=== PATIENT | male | born 1985 | race Caucasian/White ===

== ENCOUNTER 2019-08-19 17:53 | Emergency (ER) | payer MEDICAID ==
[~2019-08-19] VITALS: Ht 170.2 cm; Wt 68.0 kg
--- NOTE | 2019-08-19 17:53 | NUR ---
Patient to ER bed 6 to gown for evaluation. Side rails up. Report given to SONIA Olmos.
--- NOTE | 2019-08-19 17:55 | NUR ---
ER Dr Garza at bedside examining patient.
[2019-08-19 17:57] VITALS: BP_SYST 126
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
[2019-08-19] MEDS ORDERED: LORazepam 1 MG TABLET PO ONE (18:15)
[2019-08-19] MEDS ORDERED: KETOROLAC TROMETHAMINE 60 MG/2 ML VIAL IM ONE (18:15)
--- NOTE | 2019-08-19 18:20 | NUR ---
pt getting an US at the bedside.
[2019-08-19 18:35] LABS: BASOPHILS # (AUTO) 0.1 K/uL (0.0-0.2); BASOPHILS % (AUTO) 0.7 % (0.0-2.0); EOSINOPHILS # (AUTO) 0.1 K/uL (0.0-0.4); EOSINOPHILS % (AUTO) 0.7 % (0.0-4.0); HEMATOCRIT 40.8 % (36-54); HEMOGLOBIN 13.7 g/dL (14.0-18.0); LYMPHOCYTES # (AUTO) 1.5 K/uL (1.0-5.5); LYMPHOCYTES % (AUTO) 17.9 % (20.5-51.5); MEAN CORPUSCULAR HEMOGLOBIN 29 pg (27-31); MEAN CORPUSCULAR HGB CONC 34 % (32-36); MEAN CORPUSCULAR VOLUME 85 fL (79.0-98.0); MONOCYTES # (AUTO) 0.3 K/uL (0.0-1.0); MONOCYTES % (AUTO) 4.1 % (1.7-9.3); NEUTROPHILS # (AUTO) 6.3 K/uL (1.8-7.7); NEUTROPHILS % (AUTO) 76.6 % (40.0-70.0); PLATELET COUNT (AUTO) 152 K/uL (130-430); RED BLOOD CELL COUNT(AUTO) 4.79 MIL/uL (4.2-6.2); RED CELL DISTRIBUTION WIDTH 13.4 % (9.0-15.0); WHITE BLOOD COUNT (AUTO) 8.3 K/uL (4.8-10.8)
[2019-08-19 18:48] LABS: CREATININE 0.99 mg/dL (0.55-1.30)
[2019-08-19 18:52] LABS: ALBUMIN 4.2 g/dL (3.4-4.8); TOTAL BILIRUBIN 0.9 mg/dL (0.0-1.0)
--- NOTE | 2019-08-19 19:00 | NUR ---
pt is still having an US at the bedside.
--- NOTE | 2019-08-19 19:10 | NUR ---
Care endorsed to Stephenie SCOTT. Pt is in stable condition.
--- NOTE | 2019-08-19 19:10 | NUR ---
RECIEVED REPORT FROM CHETNA SCOTT. PT AAOX4, SKIN W/D TO TOUCH. CORDERO, POS PULSES, NEG EDEMA, VS ON MONITOR WNL, PT VOICES NO C/O PAIN OR DISCOMFORT AT PRESENT.. PENDING DISPOSITION.
[2019-08-19] MEDS ORDERED: POTASSIUM CHLORIDE 20 MEQ/PKT PACKET PO ONE (19:15)
--- NOTE | 2019-08-19 19:50 | NUR ---
POTTASIUN 40 MEQ GIVEN, PT EDUCATION ON EATING FOODS SUCH BANANAS AND AVOCADO FOR NATURAL POTASSIUM SUPPLEMENT, PT VERBALIZED UNDERSTANDING.
[2019-08-19] MEDS ORDERED: POTASSIUM CHLORIDE 20 MEQ/PKT PACKET ONE (19:53)
--- NOTE | 2019-08-19 20:00 | NUR ---
PT D/C HOME VS WNL. ENC TO DRINK LOTS OF FLUIDS WHEN WORKING IN THE SUN. VERBALIZED UNDERSTANDING OF D/C INSTRUCTIONS. ABLE TO AMBULATE OUT OF ER, STATES HIS FRIEND WILL PICK HIM UP FROM HOSPITAL.
[2019-08-19 20:05] VITALS: BP_SYST 132
== END 2019-08-19 20:05 | disposition home or self-care (01) ==
LOC: SED 17:53
DX: R10.9 Unspecified abdominal pain (principal)
CPT/HCPCS: 36415; 76700; 80053; 83690; 85025; 96372; 99284; J1885